=== PATIENT | male | born 1950 | race Caucasian/White ===

== ENCOUNTER 2019-10-25 13:26 | Outpatient (CLI) | payer MEDICARE, SELFPAY ==
--- NOTE | ~2019-10-25 | US_ITS ---
EXAMINATION: US arterial ankle brachial ind DATE: 10/25/2019 14:09 INDICATION: Skin discoloration of the feet. TECHNIQUE: Segmental pressures and plethysmographic and Doppler waveforms of the brachial and lower e xtremity arteries were obtained. COMPARISON: None. FINDINGS: Right and left brachial artery pressures of 128 mm Hg and 127 mm Hg, respectively, are concordant (no rmal difference <= 30 mmHg). The right ankle-brachial index (RUIZ) is 1.32 (normal >= 0.9-1.0). The right great toe-brachial index (TBI) is 1.00 (normal >= 0.65). Arterial Doppler waveforms are at least triphasic at the ankle. The left RUIZ is 1.34. The left TBI is 1.03. Arterial Doppler waveforms are at least triphasic at the ankle. IMPRESSION: 1. No significant arterial occlusive disease. Reviewed, dictated and finalized at location A.
== END 2019-10-25 13:27 | disposition home or self-care (01) ==
PROVIDERS: PCP Nurse Practitioner Adult Health; Visit Provider Nurse Practitioner Adult Health
DX: R23.8 Other skin changes (principal); I73.9 Peripheral vascular disease, unspecified
CPT/HCPCS: 93922

== ENCOUNTER 2020-07-31 11:03 | Outpatient (CLI) | payer MEDICARE, SELFPAY | END 2020-07-31 11:04 | disposition home or self-care (01) | LOC: ANHCOVIDVC 11:03 | PROVIDERS: PCP Nurse Practitioner Adult Health | DX: Z23 Encounter for immunization (principal) | CPT/HCPCS: 0001A; 91300 ==

== ENCOUNTER 2020-08-21 10:58 | Outpatient (CLI) | payer MEDICARE, SELFPAY | END 2020-08-21 10:59 | disposition home or self-care (01) | LOC: ANHCOVIDVC 10:58 | PROVIDERS: PCP Nurse Practitioner Adult Health | DX: Z23 Encounter for immunization (principal) | CPT/HCPCS: 0002A; 91300 ==